=== PATIENT | female | born 1940 | race Native Hawaiian/Other Pacific Islander ===

== ENCOUNTER 2016-11-12 11:12 | Outpatient (CLI) | payer OTHER | END 2016-11-12 12:30 | disposition home or self-care (01) | LOC: MAMMO 11:12 | DX: Z12.31 Encounter for screening mammogram for malignant neoplasm of breast (principal); Z13.820 Encounter for screening for osteoporosis; M85.89 Other specified disorders of bone density and structure, multiple sites | CPT/HCPCS: G0202-TC ==

== ENCOUNTER 2016-12-19 10:54 | Outpatient (CLI) | payer OTHER ==
[2016-12-19 11:13] LABS: PLATELET COUNT 278 K/uL (152-353)
[2016-12-19 11:29] LABS: POTASSIUM 4.5 mmol/L (3.6-5.2)
== END 2016-12-19 12:30 | disposition home or self-care (01) ==
LOC: LABW 10:54
PROVIDERS: Plastic Surgery Plastic Surgery Within the Head and Neck
DX: Z01.812 Encounter for preprocedural laboratory examination (principal); Z01.818 Encounter for other preprocedural examination; Z01.811 Encounter for preprocedural respiratory examination; Z01.810 Encounter for preprocedural cardiovascular examination
CPT/HCPCS: 36415; 80048; 85027; 93005

== ENCOUNTER 2017-03-29 21:12 | Emergency (ER) | payer OTHER ==
[~2017-03-29] VITALS: Ht 157.5 cm; Wt 61.2 kg
[2017-03-29 21:48] LABS: PLATELET COUNT 262 K/uL (152-353)
[2017-03-29 21:56] LABS: POTASSIUM 3.5 mmol/L (3.6-5.2)
[2017-03-29 22:05] LABS: PARTIAL THROMBOPLASTIN TIME 25.9 SECONDS (24.5-33.6)
== END 2017-03-30 01:30 | disposition short-term general hospital (02) ==
LOC: ED 21:12
PROVIDERS: Internal Medicine
PROC: 0T9B70Z Drainage of Bladder with Drainage Device, Via Natural or Artificial Opening (ICD-10-PCS; principal; 2017-03-29)
DX: I21.9 Acute myocardial infarction, unspecified (principal); I20.0 Unstable angina; I48.91 Unspecified atrial fibrillation; I48.92 Unspecified atrial flutter
CPT/HCPCS: 36415; 51702; 80053; 82550; 83735; 83880; 84484; 85027; 85379; 85730; 93005; 94664; 96374; 96375; 99285; J0282; J1160; J1650; J1940; J2270; J2405; J2550; J3490

== ENCOUNTER 2017-03-30 01:30 | Outpatient (CLI) | payer OTHER | END 2017-03-30 02:42 | disposition short-term general hospital (02) | LOC: AMB 01:30 | DX: I21.9 Acute myocardial infarction, unspecified (principal); I20.0 Unstable angina; I48.91 Unspecified atrial fibrillation; I48.92 Unspecified atrial flutter | CPT/HCPCS: A0425; A0427 ==

== ENCOUNTER 2017-07-21 14:59 | Observation (INO) | payer OTHER ==
[~2017-07-21] VITALS: Ht 157.5 cm; Wt 59.1 kg
[2017-07-21 15:46] VITALS: BP 124/70; TEMP 98.8; Ht 157.5 cm; Wt 59.1 kg
[2017-07-21] MEDS ORDERED: ASA LOW DOSE81 MG (15:47)
[2017-07-21] MEDS ORDERED: TRICOR145 M1 PO (15:54)
[2017-07-21] MEDS ORDERED: CLOP75TA2 PO (15:55)
[2017-07-21] MEDS ORDERED: FURO40TA93 PO (15:56)
[2017-07-21] MEDS ORDERED: METO50TA63 PO (15:57)
[2017-07-21] MEDS ORDERED: ENTRESTO 24-261 TAB PO (15:58)
[2017-07-21 16:00] VITALS: BP 124/70; TEMP 98.8
[2017-07-21] MEDS ORDERED: [UNRECOGNIZED DRUG - OTHER] PO (16:00)
[2017-07-21] MEDS ORDERED: METFTAB PO (16:00)
[2017-07-21] MEDS ORDERED: FISH OIL1400 MG (16:00)
[2017-07-21] MEDS ORDERED: CALCIUM + D600 MG (16:01)
[2017-07-21] MEDS ORDERED: APPLE CIDE1 (16:02)
[2017-07-21 17:06] LABS: POTASSIUM 4.5 mmol/L (3.6-5.2)
[2017-07-21 17:10] LABS: PLATELET COUNT 325 K/uL (152-353)
--- NOTE | 2017-07-21 17:10 | NUR ---
EKG REPORT HANDED TO ME BY TASNEEM COBURN. PT STABLE AND VITAL SIGNS WNL, PT HAS NO COMPLAINTS OF PAIN/DISCOMFORT AT THIS TIME. EKG REPORT SHOWN TO DR. YOU IN ER. DR GAVE ORDERS FOR STAT CE'S. LABS BEING DONE AT THIS TIME. WILL CONT TO MONITOR PT.
--- NOTE | 2017-07-21 17:35 | NUR ---
ELEVATED CE'S REPORTED TO PATITO HERNANDEZ. PATITO NOTIFYING DR. MYERS AT THIS TIME. PT ALERT, ORIENTED, VS STABLE, AND PT HAS NO COMPLAINTS. NAD NOTED. WILL CONT TO MONITOR PT.
--- NOTE | 2017-07-21 17:55 | NUR ---
EMS HERE AT THIS TIME. PT TRANSPORTED VIA STRETCHER. PT HAS NO QUESTIONS/COMPLAINTS. PT EXPLAINED BY PATITO HANSON WHAT WAS GOING ON. CHART/PAPERS SENT WITH VENDER. NO PROBLEMS NOTED.
--- NOTE | 2017-07-21 18:10 | NUR ---
REPORT GIVEN TO ADELA BALDERAS FROM [facility] IN [facility] AT THIS TIME.
--- NOTE | 2017-07-21 18:45 | NUR ---
STAT MEDS ORDERED BY PATITO HERNANDEZ AT THIS TIME. MEDS GIVEN. PT STILL HAS NO COMPLAINTS AND VS ARE STABLE. PT HAS BEEN ACCEPTED BY DR MYERS AT [facility]. EMS NOTIFIED.
== END 2017-07-21 17:55 | disposition short-term general hospital (02) ==
LOC: MED/SURG 14:59
PROVIDERS: ADMIT Family Medicine
DX: I21.4 Non-ST elevation (NSTEMI) myocardial infarction (principal); R11.2 Nausea with vomiting, unspecified; A08.8 Other specified intestinal infections; I48.91 Unspecified atrial fibrillation; I25.10 Atherosclerotic heart disease of native coronary artery without angina pectoris; E11.9 Type 2 diabetes mellitus without complications; R10.11 Right upper quadrant pain
CPT/HCPCS: 36415; 80053; 82150; 82550; 83690; 84484; 85027; 93005; 94760; 96372; 99220; G0378; G0379; J1644

== ENCOUNTER 2017-07-21 18:16 | Outpatient (CLI) | payer OTHER ==
[~2017-07-21 18:16] MED LIST: APPLE CIDE1; ASA LOW DOSE81 MG; CALCIUM + D600 MG; CLOP75TA2 PO; ENTRESTO 24-261 TAB PO; FISH OIL1400 MG; FURO40TA93 PO; METFTAB PO; METO50TA63 PO; TRICOR145 M1 PO; [UNRECOGNIZED DRUG - OTHER] PO
== END 2017-07-21 18:46 | disposition short-term general hospital (02) ==
LOC: AMB 18:16
DX: I21.29 ST elevation (STEMI) myocardial infarction involving other sites (principal)
CPT/HCPCS: A0425; A0427

== ENCOUNTER 2017-07-23 11:35 | Outpatient (CLI) | payer OTHER ==
[2017-07-23 12:53] LABS: POTASSIUM 3.7 mmol/L (3.6-5.2)
== END 2017-07-23 22:05 | disposition home or self-care (01) ==
LOC: LABW 11:35
PROVIDERS: Nurse Practitioner Adult Health
DX: I25.10 Atherosclerotic heart disease of native coronary artery without angina pectoris (principal); Z79.899 Other long term (current) drug therapy; Z51.81 Encounter for therapeutic drug level monitoring
CPT/HCPCS: 36415; 80048

== ENCOUNTER 2017-09-02 13:40 | Outpatient (CLI) | payer OTHER ==
[2017-09-02 14:25] LABS: PLATELET COUNT 340 K/uL (152-353)
== END 2017-09-02 23:23 | disposition home or self-care (01) ==
LOC: LABW 13:40
PROVIDERS: Internal Medicine
DX: I12.9 Hypertensive chronic kidney disease with stage 1 through stage 4 chronic kidney disease, or unspecified chronic kidney disease (principal); N18.3 Chronic kidney disease, stage 3 (moderate); E11.22 Type 2 diabetes mellitus with diabetic chronic kidney disease; I70.1 Atherosclerosis of renal artery
CPT/HCPCS: 36415; 80053; 81000; 82043; 82306; 82330; 82550; 82570; 82607; 82728; 82746; 83036; 83540; 83550; 83735; 84100; 84155; 84439; 84443; 84550; 85027; 85651; 86430

== ENCOUNTER 2017-10-05 11:26 | Outpatient (CLI) | payer OTHER | END 2017-10-05 19:46 | disposition home or self-care (01) | LOC: CT 11:26 | DX: R14.0 Abdominal distension (gaseous) (principal); R06.02 Shortness of breath; I71.2 Thoracic aortic aneurysm, without rupture ==

== ENCOUNTER 2017-10-09 11:01 | Outpatient (CLI) | payer OTHER | END 2017-10-09 19:12 | disposition home or self-care (01) | LOC: RESP 11:01 | DX: R14.0 Abdominal distension (gaseous) (principal); R06.02 Shortness of breath ==

== ENCOUNTER 2017-11-06 01:18 | Observation (INO) | payer OTHER ==
[~2017-11-06] VITALS: Ht 157.5 cm; Wt 63.1 kg
[2017-11-06 01:15] VITALS: BP 143/78; TEMP 97.2
[2017-11-06] MEDS ORDERED: GLIM4TAB PO (01:43)
[2017-11-06] MEDS ORDERED: TRADJENTA5 M1 OR (01:45)
[2017-11-06 02:02] LABS: PLATELET COUNT 276 K/uL (152-353)
[2017-11-06 02:06] LABS: POTASSIUM 3.5 mmol/L (3.6-5.2)
[2017-11-06 06:15] VITALS: BP 136/84; TEMP 97.6; Ht 157.5 cm; Wt 63.1 kg
[2017-11-06 08:05] VITALS: BP 120/76; TEMP 98.1
== END 2017-11-06 13:35 | disposition short-term general hospital (02) ==
LOC: ED 01:18 → MED/SURG 03:30
PROVIDERS: ADMIT Internal Medicine
DX: I48.91 Unspecified atrial fibrillation (principal); R07.89 Other chest pain; I25.10 Atherosclerotic heart disease of native coronary artery without angina pectoris; R06.02 Shortness of breath; E11.22 Type 2 diabetes mellitus with diabetic chronic kidney disease; N18.4 Chronic kidney disease, stage 4 (severe)
CPT/HCPCS: 36415; 80053; 82550; 82553; 83735; 84484; 85027; 93005; 96361; 96365; 96366; 96372; 96374; 96375; 99220; 99284; 99285; G0378; J1160; J3490

== ENCOUNTER 2017-11-06 13:39 | Outpatient (CLI) | payer OTHER ==
[~2017-11-06 13:39] MED LIST changes: +GLIM4TAB PO; +TRADJENTA5 M1 OR
== END 2017-11-06 14:53 | disposition short-term general hospital (02) ==
LOC: AMB 13:39
DX: I48.91 Unspecified atrial fibrillation (principal); R07.89 Other chest pain; I25.10 Atherosclerotic heart disease of native coronary artery without angina pectoris; R06.02 Shortness of breath; E11.22 Type 2 diabetes mellitus with diabetic chronic kidney disease; N18.4 Chronic kidney disease, stage 4 (severe)
CPT/HCPCS: A0425; A0429

== ENCOUNTER 2018-04-09 15:13 | Outpatient (CLI) | payer OTHER ==
[2018-04-09 15:32] LABS: PLATELET COUNT 229 K/uL (152-353)
[2018-04-09 16:06] LABS: POTASSIUM 4.1 mmol/L (3.6-5.2)
== END 2018-04-09 23:24 | disposition home or self-care (01) ==
LOC: LABW 15:13
PROVIDERS: Internal Medicine
DX: R06.09 Other forms of dyspnea (principal); N18.4 Chronic kidney disease, stage 4 (severe)
CPT/HCPCS: 36415; 80053; 81000; 82043; 82306; 82570; 83735; 83880; 84100; 84155; 85027; 85651

== ENCOUNTER 2018-05-31 11:36 | Outpatient (CLI) | payer OTHER ==
[2018-05-31 12:03] LABS: PLATELET COUNT 215 K/uL (152-353)
[2018-05-31 13:08] LABS: POTASSIUM 4.5 mmol/L (3.6-5.2)
== END 2018-05-31 20:02 | disposition home or self-care (01) ==
LOC: LABW 11:36
PROVIDERS: Internal Medicine
DX: N18.4 Chronic kidney disease, stage 4 (severe) (principal); R82.90 Unspecified abnormal findings in urine
CPT/HCPCS: 36415; 80053; 81000; 82043; 82306; 82570; 83735; 84100; 84155; 85027; 87086; 87088

== ENCOUNTER 2018-07-21 13:40 | Outpatient (CLI) | payer OTHER | END 2018-07-21 23:46 | disposition home or self-care (01) | LOC: RAD 13:40 | DX: M54.2 Cervicalgia (principal); M54.16 Radiculopathy, lumbar region ==

== ENCOUNTER 2018-08-12 12:01 | Outpatient (CLI) | payer OTHER ==
[2018-08-12 12:36] LABS: PLATELET COUNT 213 K/uL (152-353)
[2018-08-12 12:57] LABS: POTASSIUM 4.3 mmol/L (3.6-5.2)
== END 2018-08-12 23:11 | disposition home or self-care (01) ==
LOC: LABW 12:01
PROVIDERS: Internal Medicine Cardiovascular Disease
DX: I25.10 Atherosclerotic heart disease of native coronary artery without angina pectoris (principal); I11.0 Hypertensive heart disease with heart failure; N18.3 Chronic kidney disease, stage 3 (moderate); E78.49 Other hyperlipidemia; I50.89 Other heart failure
CPT/HCPCS: 36415; 80048; 80076; 82550; 83880; 84436; 84443; 85027; 85651

== ENCOUNTER 2018-11-29 16:25 | Outpatient (CLI) | payer OTHER ==
[2018-11-29 16:53] LABS: PLATELET COUNT 222 K/uL (152-353)
[2018-11-29 17:01] LABS: POTASSIUM 4.1 mmol/L (3.6-5.2); SODIUM 138 mmol/L (136-145)
== END 2018-11-29 23:59 | disposition home or self-care (01) ==
LOC: LABW 16:25
PROVIDERS: Internal Medicine
DX: E55.9 Vitamin D deficiency, unspecified (principal); I12.9 Hypertensive chronic kidney disease with stage 1 through stage 4 chronic kidney disease, or unspecified chronic kidney disease
CPT/HCPCS: 36415; 80053; 81000; 82043; 82306; 82570; 83735; 84100; 84155; 85027

== ENCOUNTER 2019-02-25 13:34 | Outpatient (CLI) | payer OTHER ==
[2019-02-25 14:15] LABS: PLATELET COUNT 205 K/uL (152-353)
[2019-02-25 14:26] LABS: POTASSIUM 3.1 mmol/L (3.6-5.2)
== END 2019-02-25 19:28 | disposition home or self-care (01) ==
LOC: LABW 13:34
PROVIDERS: Internal Medicine
DX: N18.4 Chronic kidney disease, stage 4 (severe) (principal); R82.998 Other abnormal findings in urine
CPT/HCPCS: 36415; 80053; 81000; 82330; 82570; 83735; 84100; 84155; 85027; 87077; 87086; 87088; 87186

== ENCOUNTER 2019-04-29 14:03 | Outpatient (CLI) | payer OTHER ==
[2019-04-29 14:51] LABS: PLATELET COUNT 205 K/uL (152-353)
[2019-04-29 15:03] LABS: POTASSIUM 4.2 mmol/L (3.6-5.2)
== END 2019-04-29 19:47 | disposition home or self-care (01) ==
LOC: LABW 14:03
PROVIDERS: Internal Medicine
DX: N18.4 Chronic kidney disease, stage 4 (severe) (principal)
CPT/HCPCS: 36415; 80053; 81000; 82306; 82330; 82570; 83735; 83970; 84100; 84155; 85027

== ENCOUNTER 2019-06-06 13:56 | Outpatient (CLI) | payer OTHER | END 2019-06-06 19:21 | disposition home or self-care (01) | LOC: RAD 13:56 | DX: M54.2 Cervicalgia (principal) ==

== ENCOUNTER 2019-09-06 11:45 | Outpatient (CLI) | payer OTHER ==
[2019-09-06 12:23] LABS: PLATELET COUNT 247 K/uL (152-353)
[2019-09-06 12:32] LABS: POTASSIUM 4.2 mmol/L (3.6-5.2)
== END 2019-09-06 19:11 | disposition home or self-care (01) ==
LOC: LABW 11:45
PROVIDERS: Nurse Practitioner
DX: I50.9 Heart failure, unspecified (principal); N18.4 Chronic kidney disease, stage 4 (severe)
CPT/HCPCS: 36415; 80053; 81000; 82306; 82330; 82570; 83735; 83880; 83970; 84100; 84155; 85027

== ENCOUNTER 2019-10-06 16:42 | Emergency (ER) | payer OTHER ==
[~2019-10-06] VITALS: Ht 157.5 cm; Wt 63.0 kg
[2019-10-06 16:42] VITALS: BP 151/100; TEMP 97.9
[2019-10-06 17:07] LABS: PLATELET COUNT 249 K/uL (152-353)
[2019-10-06 17:14] LABS: POTASSIUM 3.2 mmol/L (3.6-5.2)
[2019-10-06 17:26] LABS: PARTIAL THROMBOPLASTIN TIME 29.1 SECONDS (24.5-33.6)
== END 2019-10-06 19:31 | disposition short-term general hospital (02) ==
LOC: ED 16:50
PROC: 0BH17EZ Insertion of Endotracheal Airway into Trachea, Via Natural or Artificial Opening (ICD-10-PCS; principal; 2019-10-06)
PROC: 5A1935Z Respiratory Ventilation, Less than 24 Consecutive Hours (ICD-10-PCS; 2019-10-06)
PROC: 0T9B70Z Drainage of Bladder with Drainage Device, Via Natural or Artificial Opening (ICD-10-PCS; 2019-10-06)
PROC: 0D9670Z Drainage of Stomach with Drainage Device, Via Natural or Artificial Opening (ICD-10-PCS; 2019-10-06)
DX: I21.4 Non-ST elevation (NSTEMI) myocardial infarction (principal); I46.9 Cardiac arrest, cause unspecified; I25.2 Old myocardial infarction
CPT/HCPCS: 31500; 36600; 43754; 51702; 80053; 81000; 82805; 84484; 85007; 85027; 85379; 85610; 85730; 87088; 93005; 94002; 94760; 96360; 96372; 96375; 96376; 99285; J1650; J2060; J2250; J2405

== ENCOUNTER 2019-10-26 13:23 | Inpatient (IN) | payer OTHER | END 2019-11-05 09:22 | disposition still patient (30) | LOC: PAVB 13:23 | PROVIDERS: ADMIT Internal Medicine | DX: I25.5 Ischemic cardiomyopathy (principal); I48.0 Paroxysmal atrial fibrillation; M62.81 Muscle weakness (generalized); R26.2 Difficulty in walking, not elsewhere classified; Z74.1 Need for assistance with personal care; A04.72 Enterocolitis due to Clostridium difficile, not specified as recurrent; I50.22 Chronic systolic (congestive) heart failure; I25.10 Atherosclerotic heart disease of native coronary artery without angina pectoris; E11.65 Type 2 diabetes mellitus with hyperglycemia | CPT/HCPCS: 80053; 80061; 82306; 82728; 83036; 83540; 83880; 85027; 87081; 87635; G2062; U0002 ==

== ENCOUNTER 2019-11-05 10:05 | Inpatient (IN) | payer OTHER | END 2019-11-21 14:30 | disposition home or self-care (01) | LOC: PAVB 10:05 | PROVIDERS: ADMIT Internal Medicine | DX: I25.5 Ischemic cardiomyopathy (principal); I48.0 Paroxysmal atrial fibrillation; M62.81 Muscle weakness (generalized); R26.2 Difficulty in walking, not elsewhere classified; Z74.1 Need for assistance with personal care; A04.72 Enterocolitis due to Clostridium difficile, not specified as recurrent; I50.22 Chronic systolic (congestive) heart failure; I25.10 Atherosclerotic heart disease of native coronary artery without angina pectoris; E11.65 Type 2 diabetes mellitus with hyperglycemia ==

== ENCOUNTER 2019-12-16 14:05 | Emergency (ER) | payer OTHER ==
[~2019-12-16] VITALS: Ht 157.5 cm; Wt 63.0 kg
[2019-12-16 14:08] VITALS: TEMP 99.1
[2019-12-16 14:35] LABS: PLATELET COUNT 266 K/uL (152-353)
[2019-12-16 14:37] LABS: POTASSIUM 3.8 mmol/L (3.6-5.2)
[2019-12-16 15:54] VITALS: BP 114/57
== END 2019-12-16 16:02 | disposition home or self-care (01) ==
LOC: ED 14:05
PROVIDERS: Family Medicine
DX: S16.1XXA Strain of muscle, fascia and tendon at neck level, initial encounter (principal); S39.012A Strain of muscle, fascia and tendon of lower back, initial encounter; I71.2 Thoracic aortic aneurysm, without rupture; I71.4 Abdominal aortic aneurysm, without rupture; V49.50XA Passenger injured in collision with unspecified motor vehicles in traffic accident, initial encounter; Y92.89 Other specified places as the place of occurrence of the external cause
CPT/HCPCS: 80053; 85007; 85027; 96374; 96375; 99284; J1885; J2405

== ENCOUNTER 2020-06-08 11:49 | Outpatient (CLI) | payer OTHER ==
[2020-06-08 12:14] LABS: PLATELET COUNT 241 K/uL (152-353)
== END 2020-06-08 21:33 | disposition home or self-care (01) ==
LOC: LABW 11:49
PROVIDERS: ATTEND Internal Medicine
DX: N18.4 Chronic kidney disease, stage 4 (severe) (principal); R82.998 Other abnormal findings in urine
CPT/HCPCS: 36415; 80053; 81000; 82043; 82570; 83735; 84100; 84155; 85027; 87077; 87086; 87088; 87186

== ENCOUNTER 2020-09-13 11:00 | Outpatient (CLI) | payer OTHER | END 2020-09-13 22:44 | disposition home or self-care (01) | LOC: LABW 11:00 | PROVIDERS: ATTEND Nurse Practitioner Family | DX: L65.8 Other specified nonscarring hair loss (principal); Z79.899 Other long term (current) drug therapy | CPT/HCPCS: 36415; 82306; 82626; 82728; 83540; 83550; 84270; 84402; 84403; 84439; 84443; 86376 ==

== ENCOUNTER 2020-11-13 13:40 | Outpatient (CLI) | payer OTHER ==
[2020-11-13 14:00] LABS: POTASSIUM 4.2 mmol/L (3.6-5.2)
== END 2020-11-13 19:28 | disposition home or self-care (01) ==
LOC: LABW 13:40
PROVIDERS: ATTEND Internal Medicine Cardiovascular Disease
DX: Z09 Encounter for follow-up examination after completed treatment for conditions other than malignant neoplasm (principal)
CPT/HCPCS: 36415; 80048

== ENCOUNTER 2021-02-15 15:16 | Outpatient (CLI) | payer OTHER | END 2021-02-15 20:51 | disposition home or self-care (01) | LOC: LABW 15:16 | PROVIDERS: ATTEND Internal Medicine Cardiovascular Disease | DX: I10 Essential (primary) hypertension (principal); I48.91 Unspecified atrial fibrillation | CPT/HCPCS: 36415; 80048 ==

== ENCOUNTER 2021-04-15 15:25 | Outpatient (CLI) | payer OTHER ==
[2021-04-15 15:53] LABS: PLATELET COUNT 189 K/uL (152-353)
[2021-04-15 16:38] LABS: POTASSIUM 4.1 mmol/L (3.6-5.2)
== END 2021-04-15 19:57 | disposition home or self-care (01) ==
LOC: LABW 15:25
PROVIDERS: ATTEND Internal Medicine
DX: N18.30 Chronic kidney disease, stage 3 unspecified (principal)
CPT/HCPCS: 36415; 80053; 81000; 82043; 82570; 83735; 84100; 84155; 85027

== ENCOUNTER 2021-04-26 10:34 | Outpatient (CLI) | payer OTHER | END 2021-04-26 20:30 | disposition home or self-care (01) | LOC: US 10:34 | PROVIDERS: ATTEND Internal Medicine | DX: N18.4 Chronic kidney disease, stage 4 (severe) (principal) ==

== ENCOUNTER 2021-08-08 13:33 | Outpatient (CLI) | payer OTHER | END 2021-08-08 19:35 | disposition home or self-care (01) | LOC: US 13:33 | PROVIDERS: ATTEND Ophthalmology | DX: I71.2 Thoracic aortic aneurysm, without rupture (principal); H34.211 Partial retinal artery occlusion, right eye ==

== ENCOUNTER 2021-11-21 14:12 | Outpatient (CLI) | payer OTHER | END 2021-11-21 22:35 | disposition home or self-care (01) | LOC: MAMMO 14:12 | PROVIDERS: ATTEND Nurse Practitioner | DX: Z12.31 Encounter for screening mammogram for malignant neoplasm of breast (principal); Z13.820 Encounter for screening for osteoporosis; N95.8 Other specified menopausal and perimenopausal disorders ==

== ENCOUNTER 2021-12-30 13:36 | Outpatient (CLI) | payer OTHER | END 2021-12-30 20:13 | disposition home or self-care (01) | LOC: RAD 13:36 | PROVIDERS: ATTEND Nurse Practitioner Family | DX: M06.4 Inflammatory polyarthropathy (principal); M79.671 Pain in right foot; M79.672 Pain in left foot; M54.2 Cervicalgia; M54.51 Vertebrogenic low back pain ==

== ENCOUNTER 2022-02-12 13:41 | Outpatient (CLI) | payer OTHER | END 2022-02-12 19:15 | disposition home or self-care (01) | LOC: RESP 13:41 | PROVIDERS: ATTEND Nurse Practitioner Family | DX: H16.223 Keratoconjunctivitis sicca, not specified as Sjogren's, bilateral (principal); M10.00 Idiopathic gout, unspecified site; M47.812 Spondylosis without myelopathy or radiculopathy, cervical region; M85.89 Other specified disorders of bone density and structure, multiple sites; R76.0 Raised antibody titer ==

== ENCOUNTER 2022-04-25 10:23 | Outpatient (CLI) | payer OTHER | END 2022-04-25 19:14 | disposition home or self-care (01) | LOC: US 10:23 | PROVIDERS: ATTEND Internal Medicine | DX: I71.40 Abdominal aortic aneurysm, without rupture, unspecified (principal) ==

== ENCOUNTER 2022-08-26 15:24 | Outpatient (CLI) | payer OTHER | END 2022-08-26 19:09 | disposition home or self-care (01) | LOC: RAD 15:24 | PROVIDERS: ATTEND Nurse Practitioner | DX: S99.822A Other specified injuries of left foot, initial encounter (principal); Y92.89 Other specified places as the place of occurrence of the external cause ==

== ENCOUNTER 2023-01-23 09:15 | Outpatient (CLI) | payer OTHER | END 2023-01-23 19:22 | disposition home or self-care (01) | LOC: MAMMO 09:15 | PROVIDERS: ATTEND Nurse Practitioner | DX: Z12.31 Encounter for screening mammogram for malignant neoplasm of breast (principal); E55.9 Vitamin D deficiency, unspecified; M35.05 Sjogren syndrome with inflammatory arthritis; M47.812 Spondylosis without myelopathy or radiculopathy, cervical region; M85.89 Other specified disorders of bone density and structure, multiple sites; Z79.899 Other long term (current) drug therapy; M47.816 Spondylosis without myelopathy or radiculopathy, lumbar region; R26.89 Other abnormalities of gait and mobility; R76.0 Raised antibody titer ==